=== PATIENT | male | born 1935 | race Caucasian/White ===

== ENCOUNTER → 2016-12-04 | Outpatient (CLI) | payer MEDICARE, BC ==
--- NOTE | 2016-12-04 17:31 | PCVCIMAG ---
APPROVED REPORT Patient Location: Out-Patient Indications Stenosis Doppler Spectral Velocity Analysis PSV / EDVPSV / EDV ECA (R) 110 / 0 cm/sECA (L) 103 / 6 cm/s dICA (R) 58 / 18 cm/sdICA (L) 50 / 0 cm/s Franck (R) 57 / 13 cm/smICA (L) 64 / 15 cm/s pICA (R) 66 / 13 cm/spICA (L) 68 / 11 cm/s Bulb (R) 56 / 10 cm/sBulb (L) 64 / 6 cm/s dCCA (R) 90 / 12 cm/sdCCA (L) 94 / 11 cm/s mCCA (R) 102 / 16 cm/smCCA (L) 102 / 15 cm/s Vert (R) 40 / 8 cm/sVert (L) 58 / 19 cm/s ICA/CCA 0.73ICA/CCA 0.72 Basic Measurements Blood Pressure: Pulses: Right Left RightLeft Brachial(Sitting) 130/84yuYx178/66mmHgTemporal Real Time B-Mode Imaging Vert. (R)AntegradeVert. (L)Antegrade Findings The right carotid bulb has mild calcified plaque. The right proximal internal carotid artery shows no significant stenosis. The right common carotid artery shows no significant stenosis. The right external carotid artery shows no significant stenosis. The left carotid bulb has mild-moderate calcified plaque. The left proximal internal carotid artery shows <40% stenosis. The left common carotid artery shows no significant stenosis. The left external carotid artery shows no significant stenosis. Conclusion 1. Right internal carotid artery plaquing (<20%) 2. Left internal carotid artery stenosis (<40%) 3. Antegrade vertebral flow
== END | disposition home or self-care (01) ==
LOC: PCVCIMAG 12:49
PROVIDERS: ATTEND Internal Medicine Cardiovascular Disease
DX: I65.23 Occlusion and stenosis of bilateral carotid arteries (principal); I25.10 Atherosclerotic heart disease of native coronary artery without angina pectoris; I10 Essential (primary) hypertension; E78.00 Pure hypercholesterolemia, unspecified; Z95.1 Presence of aortocoronary bypass graft; Z79.899 Other long term (current) drug therapy; Z87.891 Personal history of nicotine dependence
CPT/HCPCS: 80061; 93005; 93880; G0463

== ENCOUNTER → 2017-06-18 | Outpatient (CLI) | payer MEDICARE, BC | END | disposition home or self-care (01) | LOC: PCVCIMAG 14:17 | DX: I25.10 Atherosclerotic heart disease of native coronary artery without angina pectoris (principal); I10 Essential (primary) hypertension; E78.5 Hyperlipidemia, unspecified; Z95.1 Presence of aortocoronary bypass graft | CPT/HCPCS: 93325; 93351 ==

== ENCOUNTER → 2018-07-01 | Outpatient (CLI) | payer MEDICARE, BC ==
--- NOTE | 2018-07-01 12:56 | PCVCIMAG ---
APPROVED REPORT Study performed: 07/01/2018 11:04:01 Exam: Stress Echocardiogram Indication: CAD s/p CABG, Dyspnea , Hypertension Patient Location: Echo lab Stress Nurse: Libia Davis RN Status: routine Ht: 5 ft 10 in HR: 54 bpm BP: 144/70 mmHg Rhythm: Bradycardia Procedure The patient underwent an Exercise Stress Test using the Maximo Protocol. Blood pressure, heart rate, and EKG were monitored. An Echocardiogram was performed by vehicle glass technician in four stages in quad fashion. At peak stress, four selected images were obtained and placed side by side with resting images for comparison. Stress Test Details Stress Test: Exercise stress testing was performed using a Maximo protocol. HR Resting HR: 54 bpmMax Heart Rate (APMHR): 136 bpm Max HR Achieved: 125 bpmTarget HR (85% APMHR): 115 bpm % of APMHR: 91 Recovery HR: 84 bpm HR response to stress: Normal HR response to stress BP Resting BP: 132/60 mmHg Max BP: 180/76 mmHg Recovery BP: 170/80 mmHg BP response to stress: Normal blood pressure response to stress. ECG Resting ECG: Sinus Bradycardia Stress ECG: Sinus Rhythm ST Change: Normal Arrhythmia: None Recovery ECG: Sinus Rhythm Recovery ST Change: Normal Recovery Arrhythmia: None Clinical Reason for Termination: Maximal effort Stress Symptoms: Dyspnea Exercise duration: 9 min sec Highest Stage Achieved: Stage 3: 3.4 mph at 14% grade. Exercise capacity: 10.1 METs Overall Exercise Capacity for Age: Good Scale: Active Angina Score: None Pre-Stress Echo The resting Echocardiogram showed normal left ventricular contractility with an estimated Ejection Fraction of about >55%. Normal wall motion in all segments on baseline images. Post-Stress Echo The stress Echocardiogram showed normal left ventricular contractility with an estimated Ejection Fraction of about 65%. Normal augmentation of wall motion in all segments on post stress images. Clinical No clinical or ECG evidence for ischemia. Conclusion Clinical Response: Non-ischemic Exercise Capacity: Superior Stress ECG Response: Non-ischemic Stress Echo Images: Non-ischemic The left ventricle is normal in size and wall thickness in both the rest and stress images. Mild tricuspid regurgitation with PAP of 35 mmHg. Mild aortic sclerosis without stenosis. Other Information Study Quality: Adequate <Conclusion> The left ventricle is normal in size and wall thickness in both the rest and stress images. Mild tricuspid regurgitation with PAP of 35 mmHg. Mild aortic sclerosis without stenosis.
== END | disposition home or self-care (01) ==
LOC: PCVCIMAG 10:50
PROVIDERS: ATTEND Internal Medicine Cardiovascular Disease
DX: I25.10 Atherosclerotic heart disease of native coronary artery without angina pectoris (principal); R06.09 Other forms of dyspnea; I10 Essential (primary) hypertension; F34.1 Dysthymic disorder; I65.23 Occlusion and stenosis of bilateral carotid arteries; E78.00 Pure hypercholesterolemia, unspecified; R06.02 Shortness of breath; R03.0 Elevated blood-pressure reading, without diagnosis of hypertension; Z95.1 Presence of aortocoronary bypass graft
CPT/HCPCS: 93325; 93351

== ENCOUNTER → 2019-03-03 | Outpatient (CLI) | payer MEDICARE, BC | END | disposition home or self-care (01) | LOC: PCVCCLINIC 10:00 | PROVIDERS: ATTEND Internal Medicine Cardiovascular Disease | DX: I25.10 Atherosclerotic heart disease of native coronary artery without angina pectoris (principal); I10 Essential (primary) hypertension; E78.00 Pure hypercholesterolemia, unspecified; Z95.1 Presence of aortocoronary bypass graft; Z87.891 Personal history of nicotine dependence | CPT/HCPCS: 36415; 80061; 93005; G0463 ==